=== PATIENT | female | born 1995 | race Hispanic/Latino ===

== ENCOUNTER 2020-06-25 11:46 | Emergency (ER) | payer OTHER ==
[~2020-06-25] VITALS: Ht 154.9 cm; Wt 46.3 kg
--- NOTE | 2020-06-25 11:46 | NUR ---
rec'd report from gerson khoury for continuity of care.
[2020-06-25] MEDS ORDERED: SODIUM CHLORIDE 0.9% 1000ML 1,000 ML IV STA (12:08)
--- NOTE | 2020-06-25 12:13 | Emergency Department Note ---
History of Present Illnes History of Present Illness History of Present Illness This is a 24 year old female who initially brought to the emergency department for a colonoscopy given her history of anemia. Rapid response was called due to a questionable vasovagal episode. Patient was seen in the endoscopy suite, noted to be pale and mildly hypotensive. Patient denies any complaints wishes to be discharged home. Onset (how long ago): minute(s) Severity: mild Onset quality: sudden Progression: resolved Past Medical/Family History Physician Review I have reviewed the patient's past medical and family history. Any updates have been documented here. Past Medical History Recent Fever: No Clinical Suspicion of Infectio: No New/Unexplained Change in Ment: No Other Surgery: VOCAL CORDS Other Last Tetanus: UNK Review of Systems Review of Systems Constitutional: Reports weakness EENTM: Reports no symptoms Cardiovascular: Reports no symptoms Respiratory: Reports no symptoms Gastrointestinal: Reports no symptoms Genitourinary: Reports no symptoms Musculoskeletal: Reports no symptoms Integumentary: Reports no symptoms Neurological: Reports as per HPI, Reports weakness Psychological: Reports no symptoms Endocrine: Reports no symptoms Hematological/Lymphatic: Reports no symptoms Physical Exam Related Data Allergies: Coded Allergies: sulfamethoxazole (Verified Allergy, Mild, RASH, 03/05/17) trimethoprim (Verified Allergy, Mild, RASH, 03/05/17) Vital signs reviewed: Yes Physical Exam CONSTITUTIONAL Constitutional: Present well-developed, Present well-nourished HENT HENT: Present normocephalic, Present atraumatic, Present oropharynx clear/lauren st, Present nose normal HENT L/R: Present left ext ear normal, Present right ext ear normal EYES Eyes: Reports PERRL, Reports conjunctivae normal NECK Neck: Present ROM normal PULMONARY Pulmonary: Present effort normal, Present breath sounds normal CARDIOVASCULAR Cardiovascular: Present regular rhythm, Present heart sounds normal, Present capillary refill normal, Present normal rate GASTROINTESTINAL Abdominal: Present soft, Present nontender, Present bowel sounds normal GENITOURINARY Genitourinary: Present exam deferred SKIN Skin: Present warm, Present dry MUSCULOSKELETAL Musculoskeletal: Present ROM normal NEUROLOGICAL Neurological: Present alert, Present oriented x 3, Present no gross motor or sensory deficits PSYCHOLOGICAL Psychological: Present mood/affect normal, Present judgement normal Results Laboratory Lab results reviewed: Yes Laboratory comments Laboratory Tests Test 06/25/20 15:20 Sodium Level 141 mmol/L (136-145) Potassium Level 3.6 mmol/L (3.5-5.1) Chloride Level 112 mmol/L (98-107) Carbon Dioxide Level 17 mmol/L (22-29) Anion Gap 15.6 mmol/L (8-16) Blood Urea Nitrogen 5 mg/dL (7-26) Creatinine 0.59 mg/dL (0.57-1.11) Estimat Glomerular Filtration Rate > 60 ML/MIN (60-) BUN/Creatinine Ratio 8 (6-25) Glucose Level 64 mg/dL (74-118) Calcium Level 9.0 mg/dL (8.4-10.2) Imaging Imaging results reviewed: Yes Assessment & Plan Medical Decision Making MDM 24-year-old well-appearing female arrived to the ED for a routine colonoscopy. Noted to have a vasovagal episode while at the endoscopy suite. Patient's symptoms improved and she was discharged home. Initial lab work shows low bicarbonate, IV fluid Resuscitation done, repeat BMP improved. Patient stable for discharge home to follow up with Dr. Mayer for A colonoscopy. Assessment & Plan Final Impression: (1) Vasovagal syncope Depart Disposition: HOME, SELF-alf Meds No Active Prescriptions or Reported Meds PREETI ROUSSEAU DO Jun 25, 2020 12:13
--- NOTE | 2020-06-25 12:52 | NUR ---
called pt's mother to give an update
--- OUTSIDE RECORDS SUMMARY | 2020-06-25 13:04 | XMS REPORT | Clinical Summary ---
Author Author [facility] Organization [facility] Address Unknown Phone Unavailable Care Team Providers Care [employer] Supervisor Name Role Phone Asked, No Pcp PCP Unavailable Allergies Comments Active Allergy Reactions Severity Noted Date Sulfamethoxazole-Trimetho 04/17/2017 prim Medications End Date Status Medication Sig Dispensed Refills Start Date Active doxycycline (VIBRAMYCIN) Take 100 mg 0 100 MG oral dosage form by mouth 2 (two) times a day. Active Problems Not on file Social History Date Tobacco Use Types Packs/Day Years Used Never Smoker Drinks/Week oz/Week Comments Alcohol Use No Sex Assigned at Date Recorded Not on file Industry Job Start Date Occupation Not on file Not on file Not on file Travel End Travel History Travel Start No recent travel history available. Last Filed Vital Signs Not on file Plan of Treatment Health Maintenance Due Date Last Done Comments CERVICAL CANCER SCREENING 2015 INFLUENZA VACCINE 07/14/2020 Results Not on fileafter 06/25/2019 Insurance Type Payer Benefit Subscriber ID Effective Phone Address Plan / Dates Group Exchange RAMOS EXCHANGE RAMOS xxxxxxxxxx [id number] [employer] resent E EXCHANGE Advance Directives For more information, please contact: [phone] Patient Home Care Giver Explanation Type Date Recorded Advance Directives, 04/17/2017 1:01 PM Living Will and Medical Power of Residential Housekeeper
--- NOTE | 2020-06-25 14:34 | NUR ---
DR. Laz KING'S OFFICE CALLED AND PROCEDURE IS SET FOR TOMORROW AT 1430
[2020-06-25 15:51] LABS: ANION GAP 15.6 mmol/L (8-16); BLOOD UREA NITROGEN 5 mg/dL (7-26); BUN/CREATININE RATIO 8 (6-25); CARBON DIOXIDE 17 mmol/L (22-29); CHLORIDE 112 mmol/L (98-107); CREATININE, SERUM 0.59 mg/dL (0.57-1.11); EST GLOMERULAR FILTRATION RATE > 60 ML/MIN (60-); GLUCOSE 64 mg/dL (74-118); POTASSIUM 3.6 mmol/L (3.5-5.1); SODIUM 141 mmol/L (136-145)
== END 2020-06-25 16:42 | disposition home or self-care (01) ==
LOC: ER 12:00
DX: R55 Syncope and collapse (principal)
CPT/HCPCS: 36415; 80048; 99284; J7030

== ENCOUNTER → 2020-06-25 | Outpatient (CLI) | payer OTHER ==
[~2020-06-25] MED LIST: HYOSCYAMINE 0.125 MG TAB ONE
[2020-06-25 10:37] LABS: BASOPHILS # (AUTO) 0.1 (0.0-0.1); BASOPHILS % 0.7 % (0.0-1.0); EOSINOPHILS # (AUTO) 0.1 (0.0-0.4); EOSINOPHILS % 0.8 % (0.0-6.0); HEMATOCRIT 38.9 % (34.2-44.1); HEMOGLOBIN 12.8 g/dL (12.0-16.0); LYMPHOCYTES # (AUTO) 2.7 (1.0-3.2); LYMPHOCYTES % 30.1 % (18.0-39.1); MEAN CORPUSCULAR HEMOGLOBIN 29.4 pg (28-32); MEAN CORPUSCULAR HGB CONC 32.9 g/dL (31-35); MEAN CORPUSCULAR VOLUME 89.2 fL (81-99); MONOCYTES # (AUTO) 0.7 (0.2-0.8); MONOCYTES % 7.2 % (4.4-11.3); NEUTROPHILS # (AUTO) 5.5 (2.1-6.9); NEUTROPHILS % 60.9 % (38.7-80.0); PLATELET COUNT 270 x10e3/uL (140-360); RED BLOOD COUNT 4.36 x10e6/uL (3.6-5.1); RED CELL DISTRIBUTION WIDTH 12.1 % (11.7-14.4)
[2020-06-25 10:53] LABS: ALANINE AMINOTRANSFERASE 23 IU/L (0-55); ALBUMIN 4.4 g/dL (3.5-5.0); ALBUMIN/GLOBULIN RATIO 1.6 (0.8-2.0); ALKALINE PHOSPHATASE 54 IU/L (40-150); ANION GAP 17.3 mmol/L (8-16); BLOOD UREA NITROGEN 6 mg/dL (7-26); BUN/CREATININE RATIO 9 (6-25); CALCIUM 9.2 mg/dL (8.4-10.2); CARBON DIOXIDE 13 mmol/L (22-29); CHLORIDE 111 mmol/L (98-107); CREATININE, SERUM 0.67 mg/dL (0.57-1.11); EST GLOMERULAR FILTRATION RATE > 60 ML/MIN (60-); GLUCOSE 99 mg/dL (74-118); POTASSIUM 3.3 mmol/L (3.5-5.1); SODIUM 138 mmol/L (136-145)
== END | disposition home or self-care (01) ==
LOC: OR 09:14 → RAD 09:14 → EDSTATUS 10:30
PROVIDERS: ATTEND Internal Medicine Gastroenterology
DX: K62.5 Hemorrhage of anus and rectum (principal); K62.89 Other specified diseases of anus and rectum; Z01.812 Encounter for preprocedural laboratory examination; Z11.59 Encounter for screening for other viral diseases; Z53.8 Procedure and treatment not carried out for other reasons
CPT/HCPCS: 36415; 80053; 81025; 85025; 93005; U0002

== ENCOUNTER → 2020-06-26 | Day surgery (SDC) | payer OTHER ==
[~2020-06-26] MED LIST changes: +FENTANYL CITRATE/PF 100MCG/2 ML INJ ONE; +GLUCAGON FOR INJ 1 MG VIAL ONE; +MIDAZOLAM HCL 2 MG/2 ML VIAL ONE; +PROPOFOL IV EMULSION 10 MG/ML 20 ML VIAL ONE
[2020-06-26 19:30] VITALS: BP 116/79
--- NOTE | 2020-06-26 19:37 | Operative Report ---
DATE OF PROCEDURE: 06/26/2020 SURGEON: Rylan Mayer MD PROCEDURE: Colonoscopy with polypectomy. INDICATIONS FOR PROCEDURE: History of bright red blood per rectum, painful defecation. MEDICATIONS: The patient was done under MAC, please see anesthesiologist's note. PROCEDURE IN DETAIL: With the patient in the lateral decubitus position, a flexible fiberoptic Olympus colonoscope was inserted into the rectum with ease and advanced all the way to the cecum. It was then withdrawn slowly. Mucosa overlying the cecum, ascending colon, transverse colon, and descending colon appeared to be within normal limits. Some mild patchy inflammatory changes noted in the sigmoid and rectum, and biopsies were obtained. The scope was then retroflexed into the distal rectum and the area around the dentate line appeared to be within normal limits. The scope was then straightened out, it was subsequently withdrawn, and anal fissure was noted that was not actively bleeding. The patient tolerated the procedure well. IMPRESSION: 1. Mild inflammatory changes, sigmoid and rectum. Biopsies obtained. 2. Anal fissure. PLAN: Follow up histology. Initiate high-fiber, low-fat diet. Initiate high-fiber supplement. Anucort HC suppositories b.i.d. x10 days and p.r.n. and VSL#3 one p.o. b.i.d. Rylan Mayer MD [facility] [place] [place] /[id number]
== END | disposition home or self-care (01) ==
LOC: OR 13:27
PROVIDERS: ATTEND Internal Medicine Gastroenterology
DX: K62.5 Hemorrhage of anus and rectum (principal); K60.2 Anal fissure, unspecified; K63.89 Other specified diseases of intestine; R03.0 Elevated blood-pressure reading, without diagnosis of hypertension; K21.9 Gastro-esophageal reflux disease without esophagitis; F41.9 Anxiety disorder, unspecified; Z88.1 Allergy status to other antibiotic agents
CPT/HCPCS: 45380; J1610; J2704; 45378; J2250; J3010